=== PATIENT | male | born 1940 | race Caucasian/White ===

== ENCOUNTER 2018-05-09 22:03 | Emergency (ER) | payer MEDICARE, BC ==
[~2018-05-09] VITALS: Ht 180.3 cm; Wt 110.0 kg
[~2018-05-09 22:03] MED LIST: CHOL2000 PO; CITA-278 PO; COR3.125T PO; FURO20TA4 PO; LOSA100T57 PO; METH-603 PO; NAPR-996 PO; PANT40TA39 PO; POTA8TAB8 PO; TEST2.5G5 TD; ZOC40T PO
--- NOTE | 2018-05-09 22:30 | NUR ---
PATIENT STATES THAT HE TAKES "OXYCODONE EVERY 6 HOURS" BUT STARTED TAKING IT EE
--- NOTE | 2018-05-09 22:31 | NUR ---
PATIENT STARTED TAKING OXYCODONE 10 MG EVERY 3 HOURS INSTEAD OF EVERY 6 HOURS BECAUSE "IT WAS NOT HELPING HIS ALL OVER PAIN"; HE STARTED TAKING HIS OXYCODONE EVERY 3 HOURS 3 DAYS AGO PATIENT [facility]
--- NOTE | 2018-05-09 22:53 | NUR ---
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
--- NOTE | 2018-05-09 23:45 | NUR ---
WHEN PATIENT TOLD BY ER MD THAT ER MD WOULD NOT PRESCRIBE NARCOTICS, THE PATIENT GOT UP OUT OF THE WHEECHAIR AND AMBULATED WNL TO THE BATHROOM. PATIENT CURRENTLY STANDING IN RAZA.
[2018-05-09 23:53] VITALS: BP 134/76
== END 2018-05-10 00:02 | disposition home or self-care (01) ==
LOC: ER 22:03
DX: G89.4 Chronic pain syndrome (principal); G47.00 Insomnia, unspecified; Z95.1 Presence of aortocoronary bypass graft; Z95.0 Presence of cardiac pacemaker; Z88.0 Allergy status to penicillin; Z88.5 Allergy status to narcotic agent; Z79.899 Other long term (current) drug therapy
CPT/HCPCS: 99283

== ENCOUNTER 2018-06-18 22:17 | Emergency (ER) | payer MEDICARE, BC ==
[~2018-06-18] VITALS: Ht 180.3 cm; Wt 96.0 kg
[~2018-06-18 22:17] MED LIST changes: -CITA-278 PO; +CITA20TA28 PO
[2018-06-18] MEDS ORDERED: normal saline 1000ml 1,000 ML IV ONE (23:15)
[2018-06-18] MEDS ORDERED: ondansetron/PF 4mg/2ml inj IV ONE (23:15)
[2018-06-18 23:57] LABS: ALANINE AMINOTRANSFERASE 65 U/L (12-78); ALBUMIN 3.4 G/DL (3.4-5.0); ALBUMIN/GLOBULIN RATIO 0.8 (1.1-1.5); ALKALINE PHOSPHATASE 88 IU/L (46-116); ANION GAP 9 (8-16); ASPARTATE AMINO TRANSFERASE 27 U/L (10-37); BILIRUBIN,TOTAL 0.6 MG/DL (0.1-1.0); BLOOD UREA NITROGEN 46 MG/DL (7-18); CALCIUM 8.6 MG/DL (8.5-10.1); CHLORIDE 100 MMOL/L (99-107); CREATININE 2.09 MG/DL (0.60-1.10); GLUCOSE 117 MG/DL (70-104); POTASSIUM 4.7 MMOL/L (3.5-5.1); SODIUM 133 MMOL/L (135-145); TOTAL CARBON DIOXIDE 23.9 MMOL/L (24-32); TOTAL PROTEIN 7.9 G/DL (6.4-8.2); eGFR 31 ML/MIN
[2018-06-19 00:09] LABS: BASOPHILS % (AUTO) 0.5 % (0-1); EOSINOPHILS # (AUTO) 0.2 X10'3 (0-0.9); EOSINOPHILS % (AUTO) 1.7 % (0-6); HEMOGLOBIN 11.8 g/dl (14.0-17.9); LYMPHOCYTES # (AUTO) 1.1 X10'3 (1.1-4.8); LYMPHOCYTES % (AUTO) 11.7 % (21-51); MEAN CORPUSCULAR HEMOGLOBIN 28.9 PG (27.0-31.0); MEAN CORPUSCULAR HGB CONC 33.7 g/dL (33.0-36.5); MEAN CORPUSCULAR VOLUME 85.7 FL (78-98); MEAN PLATELET VOLUME 8.2 FL (7.4-10.4); MONOCYTES # (AUTO) 0.9 X10'3 (0-0.9); NEUTROPHILS # (AUTO) 7.3 X10'3 (1.8-7.7); NEUTROPHILS % (AUTO) 77.1 % (42-75); PLATELET COUNT 215 X10'3 (140-440); RED BLOOD COUNT 4.08 X10'6 (4.70-6.10); WHITE BLOOD COUNT 9.4 X10'3 (4.5-11.0)
[2018-06-19] MEDS ORDERED: ONDA4TAB6 PO (00:37)
[2018-06-19] MEDS ORDERED: ondansetron/PF 4mg/2ml inj IV ONE (01:00)
[2018-06-19 01:08] VITALS: BP 140/86
== END 2018-06-19 01:18 | disposition home or self-care (01) ==
LOC: ER 22:17
DX: R11.2 Nausea with vomiting, unspecified (principal); R19.7 Diarrhea, unspecified; R50.9 Fever, unspecified; R53.1 Weakness; R61 Generalized hyperhidrosis; G89.29 Other chronic pain; Z88.0 Allergy status to penicillin; Z88.6 Allergy status to analgesic agent; Z79.899 Other long term (current) drug therapy; Z95.1 Presence of aortocoronary bypass graft; Z95.0 Presence of cardiac pacemaker
CPT/HCPCS: 36415; 80053; 85025; 96361; 96374; 99283; J2405; J7030

== ENCOUNTER 2022-08-14 02:58 | Inpatient (IN) | payer MEDICARE, BC ==
[~2022-08-14] VITALS: Ht 180.3 cm; Wt 97.7 kg
[~2022-08-14 02:58] MED LIST changes: +ONDA4TAB6 PO
[2022-08-14] MEDS ORDERED: nitroGLYCERIN 1gm ointment UD TP ONE (03:30)
[2022-08-14] MEDS ORDERED: furosemide 10 MG/1 ML 10ml inj IV ONE (03:30)
[2022-08-14 03:52] LABS: CLARITY,URINE SLIGHTLY CLOUDY (Clear); COLOR,URINE YELLOW (Yellow); GLUCOSE, URINE NEGATIVE (Neg); KETONES,URINE NEGATIVE (Neg); LEUKOCYTE ESTERASE ,URINE NEGATIVE (Neg); NITRITES, URINE NEGATIVE (Neg); OCCULT BLOOD,URINE SMALL (Neg); PROTEIN,URINE 100 mg/dl (Neg); UROBILINOGEN,URINE 0.2 E.U/dL (0.2-1.0)
[2022-08-14 03:54] LABS: HEMATOCRIT 40.4 % (42.0-52.0); HEMOGLOBIN 13.2 g/dl (14.0-17.9); MEAN CORPUSCULAR HEMOGLOBIN 27.5 PG (27.0-31.0); MEAN CORPUSCULAR HGB CONC 32.8 g/dL (33.0-36.5); MEAN CORPUSCULAR VOLUME 83.8 FL (78-98); MEAN PLATELET VOLUME 8.7 FL (7.4-10.4); PLATELET COUNT 206 X10'3 (140-440); RED BLOOD COUNT 4.82 X10'6 (4.70-6.10); RED CELL DISTRIBUTION WIDTH 15.5 % (11.5-14.5); WHITE BLOOD COUNT 6.7 X10'3 (4.5-11.0)
[2022-08-14 04:00] LABS: ALANINE AMINOTRANSFERASE 121 U/L (12-78); ALBUMIN 3.5 G/DL (3.4-5.0); ALBUMIN/GLOBULIN RATIO 0.8 (1.1-1.5); ALKALINE PHOSPHATASE 271 IU/L (46-116); ANION GAP 11 (8-16); ASPARTATE AMINO TRANSFERASE 136 U/L (10-37); BILIRUBIN,TOTAL 0.9 MG/DL (0.1-1.0); BLOOD UREA NITROGEN 26 MG/DL (7-18); BUN/CREATININE RATIO 15.1 (10.0-20.0); CALCIUM 8.8 MG/DL (8.5-10.1); CHLORIDE 103 MMOL/L (99-107); CREATININE 1.72 MG/DL (0.60-1.10); GLUCOSE 125 MG/DL (70-104); SODIUM 137 MMOL/L (135-145); TOTAL CARBON DIOXIDE 22.6 MMOL/L (24-32); TOTAL PROTEIN 8.1 G/DL (6.4-8.2); eGFR 38 ML/MIN
[2022-08-14 04:13] LABS: POTASSIUM 4.7 MMOL/L (3.5-5.1)
[2022-08-14 04:18] LABS: UA COLLECTION TYPE VOIDED
[2022-08-14 04:19] LABS: BACTERIA,URINE NONE SEEN /HPF (Neg); RBC,URINE 0-2 /HPF (0-2); SQUAMOUS EPITHELIAL CELL,UR NONE SEEN /LPF (FEW); WBC,URINE 0-4 /HPF (0-4)
[2022-08-14 05:04] LABS: TOTAL CELLS COUNTED 100
[2022-08-14 05:05] LABS: PLATELET ESTIMATE NORMAL
[2022-08-14] MEDS ORDERED: potassium Cl 40MEQ/1/2NS 520ml 520 ML IV PRN (06:10)
[2022-08-14] MEDS ORDERED: magnesium 4gm in 100ml NS 100 ML IV PRN (06:10)
[2022-08-14] MEDS ORDERED: potassium Cl 20 mEq SR tablet PO PRN ×2 (06:10)
[2022-08-14] MEDS ORDERED: magnesium 2GM in 50ml NS 50 ML IV PRN (06:10)
[2022-08-14] MEDS ORDERED: PERFLUTREN PROTEIN-A MICROSPHR (Optison) 0.22 MG/ML 3ML VIAL IV ONE (06:10)
[2022-08-14] MEDS ORDERED: ondansetron/PF 4mg/2ml inj IV PRN (06:10)
[2022-08-14] MEDS ORDERED: magnesium Cl slow-release 64mg tablet PO PRN (06:10)
[2022-08-14] MEDS ORDERED: ipratropium/albuterol 3ml nebule NEB PRN (06:50)
--- NOTE | 2022-08-14 06:50 | NUR ---
PER PHARMACY OK TO GIVE ALBUTEROL NEB PT IS NO LONGER TAKING HIS HOME MEDS NO BETA THEO INTERACTION
[2022-08-14] MEDS: K and/or MAG REPLACEMENT MC SCH ×2 (07:30→20:00)
[2022-08-14] MEDS: methylPREDNISolone sod succ/PF 40mg inj. IV SCH ×2 (07:33→20:00)
[2022-08-14] MEDS ORDERED: acetaminophen 325mg tablet PO ONE (07:35)
[2022-08-14] MEDS: heparin, porcine 5000 units/ml vial SQ SCH ×2 (07:36→20:47)
[2022-08-14 10:30] VITALS: BP 138/81
[2022-08-14] MEDS ORDERED: pneumococcal 23-VAL P-sac vacc 25 mcg/0.5ml vial IMVAC ONE (14:00)
[2022-08-14] MEDS: metoprolol succinate 25mg (24-HOUR) SR. Tablet PO SCH (14:36)
[2022-08-14 14:48] VITALS: BP 135/75
[2022-08-14] MEDS ORDERED: OMEP20CA16 PO (15:18)
--- NOTE | 2022-08-14 18:00 | NUR ---
Patient in room [id number]. I have received report from Brett tijerina and had the opportunity to ask questions and assume patient care.
[2022-08-14] MEDS ORDERED: methylPREDNISolone sod succ/PF 40mg inj. IV ONE (20:40)
--- NOTE | 2022-08-14 22:40 | NUR ---
PAGED DR. MURRY FOR NASIMA RAAZ HAVING ACID REFLUX AND WAS WONDERING IF WE COULD HAVE SOMETHING FOR THAT. THANK YOU [facility] [id number]
[2022-08-14] MEDS ORDERED: mag hydrox/Alum hydrox/simeth 30ml oral suspension PO ONE (23:45)
--- NOTE | 2022-08-15 06:25 | NUR ---
Problems reprioritized. Patient report given, questions answered & plan of care reviewed with Brett tijerina.
[2022-08-15] MEDS ORDERED: mag hydrox/Alum hydrox/simeth 30ml oral suspension PO ONE (06:40)
[2022-08-15 07:00] VITALS: BP 151/77
[2022-08-15 07:14] LABS: BASOPHILS % (AUTO) 0.2 % (0-1); EOSINOPHILS % (AUTO) 0 % (0-6); HEMATOCRIT 38.5 % (42.0-52.0); HEMOGLOBIN 12.8 g/dl (14.0-17.9); LYMPHOCYTES # (AUTO) 0.8 X10'3 (1.1-4.8); LYMPHOCYTES % (AUTO) 9.3 % (21-51); MEAN CORPUSCULAR HEMOGLOBIN 27.8 PG (27.0-31.0); MEAN CORPUSCULAR HGB CONC 33.3 g/dL (33.0-36.5); MEAN CORPUSCULAR VOLUME 83.6 FL (78-98); MEAN PLATELET VOLUME 8.7 FL (7.4-10.4); MONOCYTES # (AUTO) 0.2 X10'3 (0-0.9); MONOCYTES % (AUTO) 2.9 % (2-12); NEUTROPHILS # (AUTO) 7.3 X10'3 (1.8-7.7); NEUTROPHILS % (AUTO) 87.6 % (42-75); PLATELET COUNT 203 X10'3 (140-440); RED CELL DISTRIBUTION WIDTH 15.2 % (11.5-14.5); WHITE BLOOD COUNT 8.3 X10'3 (4.5-11.0)
[2022-08-15 07:24] LABS: ALBUMIN 3.2 G/DL (3.4-5.0); ANION GAP 12 (8-16); BLOOD UREA NITROGEN 42 MG/DL (7-18); BUN/CREATININE RATIO 22.7 (10.0-20.0); CALCIUM 9.4 MG/DL (8.5-10.1); CHLORIDE 99 MMOL/L (99-107); CHOL/HDL RATIO 3.6 (0.00-4.99); CHOLESTEROL 175 MG/DL (0-200); CREATININE 1.85 MG/DL (0.60-1.10); GLUCOSE 140 MG/DL (70-104); HDL CHOLESTEROL 48 MG/DL (35-60); LDL CHOLESTEROL 105 MG/DL (50-100); MAGNESIUM 2.3 MG/DL (1.5-2.4); POTASSIUM 4.8 MMOL/L (3.5-5.1); SODIUM 135 MMOL/L (135-145); TOTAL CARBON DIOXIDE 24.4 MMOL/L (24-32); TRIGLYCERIDES 80 MG/DL (20-135); eGFR 35 ML/MIN
[2022-08-15 07:27] VITALS: BP_SYST 151
[2022-08-15] MEDS: metoprolol succinate 25mg (24-HOUR) SR. Tablet PO SCH (07:27)
[2022-08-15] MEDS: heparin, porcine 5000 units/ml vial SQ SCH (07:29)
[2022-08-15] MEDS ORDERED: methylPREDNISolone sod succ/PF 40mg inj. IV SCH (08:00)
[2022-08-15] MEDS ORDERED: furosemide 20 MG/2 ML vial IV SCH (08:00)
[2022-08-15] MEDS ORDERED: lisinopril 5mg tablet PO SCH (08:00)
[2022-08-15] MEDS ORDERED: losartan 25mg tablet PO SCH (08:00)
[2022-08-15] MEDS ORDERED: PRED20TA PO (10:35)
[2022-08-15] MEDS ORDERED: METO-395 PO (10:35)
[2022-08-15] MEDS ORDERED: LOSA25TA41 PO (10:35)
[2022-08-15] MEDS ORDERED: FURO-150 PO (10:35)
[2022-08-15] MEDS ORDERED: ALBU8HFA PO (10:35)
== END 2022-08-15 14:21 | disposition home or self-care (01) | DRG 190 ==
LOC: ER 02:58 → ED HOLD 06:20 → PCU 3S 10:15
PROVIDERS: ADMIT Internal Medicine; ATTEND Family Medicine
PROC: 3E0234Z Introduction of Serum, Toxoid and Vaccine into Muscle, Percutaneous Approach (ICD-10-PCS; principal; 2022-08-14)
DX: J44.1 Chronic obstructive pulmonary disease with (acute) exacerbation (principal); I50.23 Acute on chronic systolic (congestive) heart failure; I13.0 Hypertensive heart and chronic kidney disease with heart failure and stage 1 through stage 4 chronic kidney disease, or unspecified chronic kidney disease; N17.9 Acute kidney failure, unspecified; E78.5 Hyperlipidemia, unspecified; G89.29 Other chronic pain; K21.9 Gastro-esophageal reflux disease without esophagitis; R74.01 Elevation of levels of liver transaminase levels; N18.9 Chronic kidney disease, unspecified; F32.A Depression, unspecified; G47.30 Sleep apnea, unspecified; F17.210 Nicotine dependence, cigarettes, uncomplicated; I25.10 Atherosclerotic heart disease of native coronary artery without angina pectoris; I25.5 Ischemic cardiomyopathy; I48.91 Unspecified atrial fibrillation; Z79.82 Long term (current) use of aspirin; Z88.0 Allergy status to penicillin; Z95.1 Presence of aortocoronary bypass graft; Z95.810 Presence of automatic (implantable) cardiac defibrillator; Z23 Encounter for immunization; Z88.5 Allergy status to narcotic agent; Z79.899 Other long term (current) drug therapy
CPT/HCPCS: 36415; 71045; 80048; 80053; 80061; 81001; 83605; 83735; 83880; 84484; 85007; 85025; 87040; 90732; 93005; 93306; 94640; 94760; 99285; G0378; J1644; J1940; J2920; J7030

== ENCOUNTER 2022-10-06 12:15 | Day surgery (SDC) | payer MEDICARE, BC ==
[2022-10-06] VITALS (7 sets, daily range): BP systolic 106–127; BP diastolic 67–77
[~2022-10-06] VITALS: Ht 172.7 cm; Wt 104.0 kg
[~2022-10-06 12:15] MED LIST changes: -CHOL2000 PO; -CITA20TA28 PO; -COR3.125T PO; +FURO-150 PO; -FURO20TA4 PO; -LOSA100T57 PO; +LOSA25TA41 PO; -METH-603 PO; +METO-395 PO; -NAPR-996 PO; +OMEP20CA16 PO; -ONDA4TAB6 PO; -PANT40TA39 PO; -POTA8TAB8 PO; -TEST2.5G5 TD; -ZOC40T PO
[2022-10-06] MEDS ORDERED: normal saline 1,000 ML IV SCH (12:35)
[2022-10-06] MEDS ORDERED: LORazepam 0.5 MG tablet PO PRN (12:35)
[2022-10-06] MEDS ORDERED: LOSA25TA96 PO (12:44)
[2022-10-06] MEDS ORDERED: LOP12.5T PO (12:44)
[2022-10-06] MEDS ORDERED: FURO-150 PO (12:44)
[2022-10-06] MEDS ORDERED: iohexol 350 MG/ML 50ML vial IV ONE (14:45)
[2022-10-06] MEDS ORDERED: fentaNYL/PF 50MCG/1 ML 2ML syringe ONE (14:46)
[2022-10-06] MEDS ORDERED: LIDOcaine 1% (10mg/ml)w/preservative inj. 20ml MDV ONE (14:46)
[2022-10-06] MEDS ORDERED: midazolam 1 mg/ML 2ml injection ONE (14:46)
[2022-10-06] MEDS ORDERED: hydrALAZINE 20mg/ml inj. IV PRN (17:15)
[2022-10-06] MEDS ORDERED: HYDROcodone/acetaminophen 5mg/325mg tablet PO PRN (17:15)
[2022-10-06] MEDS ORDERED: HYDROcodone/acetaminophen 10/325mg tab PO PRN (17:15)
[2022-10-07 06:38] LABS: ISTAT Hct MIX 40 %PCV (42-52); ISTAT O2 SATURATION MIX VENOUS 57 % (60-80); ISTAT SOURCE VEN
== END 2022-10-06 19:00 | disposition home or self-care (01) ==
LOC: SSTAY O 12:15
PROVIDERS: ATTEND Student in an Organized Health Care Education/Training Program
DX: I13.0 Hypertensive heart and chronic kidney disease with heart failure and stage 1 through stage 4 chronic kidney disease, or unspecified chronic kidney disease (principal); I50.9 Heart failure, unspecified; N18.9 Chronic kidney disease, unspecified; I25.10 Atherosclerotic heart disease of native coronary artery without angina pectoris; G47.33 Obstructive sleep apnea (adult) (pediatric); Z95.810 Presence of automatic (implantable) cardiac defibrillator; Z95.1 Presence of aortocoronary bypass graft; E78.5 Hyperlipidemia, unspecified; Z87.891 Personal history of nicotine dependence; Z88.5 Allergy status to narcotic agent; Z79.899 Other long term (current) drug therapy
CPT/HCPCS: 33289; 36415; 82803; 85014; 85610; 93005; 99152; C2624; J1644; J2250; J3010; J3490; J7030; Q9967; 99153; A6258; A6402; C1751; C1769; C1894